=== PATIENT | male | born 1935 | race Two or more races ===

== ENCOUNTER 2018-03-10 09:46 | Inpatient (IN) | payer SELFPAY ==
[~2018-03-10] VITALS: Ht 157.5 cm; Wt 52.2 kg
[~2018-03-10 09:46] MED LIST: IBUPROFEN400 MG ORAL; MULTI-DAY VITA1 EAC1 ORAL; VALIUM2 MG ORAL
[2018-03-10] MEDS ORDERED: NKM (09:56)
[2018-03-10 10:59] LABS: BASOPHILS % (AUTO) 1.2 % (0.0-2.0); EOSINOPHILS % (AUTO) 2.3 % (0.0-3.0); HEMATOCRIT 44.8 % (42.0-52.0); HEMOGLOBIN 14.8 G/DL (14.2-18.0); LYMPHOCYTES % (AUTO) 18.9 % (20.0-45.0); MEAN CORPUSCULAR VOLUME 90 FL (80-99); MONOCYTES % (AUTO) 6.7 % (1.0-10.0); NEUTROPHILS % (AUTO) 70.9 % (45.0-75.0); PLATELET COUNT 296 K/UL (150-450); RED BLOOD COUNT 4.99 M/UL (4.70-6.10); RED CELL DISTRIBUTION WIDTH 11.9 % (11.6-14.8); WHITE BLOOD COUNT 10.3 K/UL (4.8-10.8)
[2018-03-10 11:00] VITALS: BP 145/52
[2018-03-10 11:10] LABS: ANION GAP 8 mmol/L (5-15); BLOOD UREA NITROGEN 18 mg/dL (7-18); CALCIUM 8.7 MG/DL (8.5-10.1); CARBON DIOXIDE 27 MMOL/L (21-32); CHLORIDE 106 MMOL/L (98-107); INR 1.1 (0.9-1.1); POTASSIUM 3.8 MMOL/L (3.5-5.1); SODIUM 141 MMOL/L (136-145)
[2018-03-10 11:24] LABS: ALANINE AMINOTRANSFERASE 24 U/L (12-78); ALBUMIN 3.5 G/DL (3.4-5.0); ALBUMIN/GLOBULIN RATIO 0.9 (1.0-2.7); ALKALINE PHOSPHATASE 96 U/L (46-116); ASPARTATE AMINO TRANSFERASE 20 U/L (15-37); BILIRUBIN,TOTAL 0.9 MG/DL (0.2-1.0)
--- NOTE | 2018-03-10 11:27 | Diagnostic Imaging Report ---
Indication: Chest pain Technique: One view of the chest Comparison: 02/28/2013 Findings: The heart is enlarged, apparently more so than on the prior exam. The lungs and pleural spaces are clear. Impression: Cardiomegaly. No acute process
[2018-03-10 13:00] VITALS: BP 131/51
[2018-03-10] MEDS ORDERED: dilTIAZem HCl 25mg/5ml Inj IV PRN (13:30)
[2018-03-10] MEDS ORDERED: Enalaprilat 2.5mg/2ml Inj IV PRN (13:30)
[2018-03-10] MEDS ORDERED: Albuterol/Ipratropium 3ml neb HHN PRN (13:30)
[2018-03-10] MEDS ORDERED: Ketorolac 30mg Inj IV PRN (13:30)
[2018-03-10] MEDS ORDERED: Miralax 17gm pkt ORAL PRN (13:30)
[2018-03-10] MEDS ORDERED: Nitroglycerin Subl 0.4mg tab SL PRN (13:30)
[2018-03-10] MEDS ORDERED: Morphine Sulfate 2mg/ml Inj IVP PRN (13:30)
--- NOTE | 2018-03-10 13:30 | Emergency Room Report ---
History of Present Illness General Chief Complaint: General Complaint Source: Patient Present Illness HPI This patient c/o right leg pain for several days. It's unclear if he has ever been studied for this. He also c/o pain across anterior chest, minutes duration , mild-moderate, not exertional or rest, occurs randomly. No sob, no diaph, no nausea. No abd pain, no vomiting. The patient does not know med list. Allergies: Coded Allergies: AMOXICILLIN (Verified Allergy, Intermediate, ITCHING/RASH, 03/08/13) Patient History Limited by: language barrier Nursing Documentation-[facility] Past Medical History: No History, Except For Hx Cardiac Problems: No - high cholesterol Hx Hypertension: No Hx Pacemaker: No Hx Asthma: No Hx COPD: No Hx Diabetes: No Hx Cancer: No Hx Gastrointestinal Problems: No Hx Dialysis: No History Of Psychiatric Problem: No Hx Neurological Problems: No Hx Cerebrovascular Accident: No Hx Seizures: No Hx Headaches: Yes - SEVERE HEADACHE STARTED THIS AM Review of Systems Constitutional: Reports: no symptoms Eye: Reports: no symptoms ENT: Reports: no symptoms Respiratory: Reports: no symptoms Cardiovascular: Reports: no symptoms Gastrointestinal: Reports: no symptoms Genitourinary: Reports: no symptoms Musculoskeletal: Reports: see HPI, muscle pain Skin: Reports: no symptoms Psychiatric: Reports: no symptoms Neurological: Reports: no symptoms Endocrine: Reports: no symptoms Hematologic/Lymphatic: Reports: no symptoms Allergic: Reports: no symptoms All Other Systems: negative except mentioned in HPI Physical Exam Vital Signs Date Time Temp Pulse Resp B/P (MAP) Pulse Ox O2 Delivery O2 Flow Rate FiO2 03/10/18 09:52 98.4 55 16 133/60 91 Room Air 98.4 Sp02 EP Interpretation: reviewed, normal General Appearance: normal inspection, well appearing, no apparent distress, alert, GCS 15, non-toxic Head: normocephalic, atraumatic Eyes: bilateral eye normal inspection, bilateral eye PERRL, bilateral eye EOMI ENT: normal ENT inspection, hearing grossly normal, normal pharynx, no angioedema, normal voice, moist mucus membranes Neck: normal inspection, full range of motion, supple, no meningismus, no bony tend Respiratory: normal inspection, lungs clear, normal breath sounds, no rhonchi, no respiratory distress, no retraction, no accessory muscle use, no wheezing Cardiovascular #1: normal inspection, regular rate, rhythm, no edema Gastrointestinal: normal inspection, normal bowel sounds, non tender, soft, no mass, non-distended Musculoskeletal: normal range of motion, other - chronic mottled appearance to right lower leg until a few inches proximal to knee. warm (normal temp) not swollen, normal pulses. Neurologic: normal inspection, alert, oriented x3, responsive, motor strength/ tone normal Psychiatric: normal inspection, judgement/insight normal, memory normal Suicide Risk Assessment: Suicidal Ideation: No Had intent to initiate attempt: No Pt's plan for suicide attempt: No Has means to complete attempt: No Skin: normal inspection, normal color, no rash, warm/dry Medical Decision Making Diagnostic Impression: Primary Impression: Chest pain Additional Impression: Right leg DVT EKG Diagnostic Results Rate: bradycardiac ST Segments: no acute changes Other Impression sinus cele, first degree block. no ischemia (I don't know pt meds) Rhythm Strip Diag. Results Rhythm Strip Time: 13:29 EP Interpretation: yes Rate: cele 46 Chest X-Ray Diagnostic Results Chest X-Ray Diagnostic Results : Chest X-Ray Ordered: Yes # of Views/Limited/Complete: 1 View Indication: Chest Pain EP Interpretation: Yes Interpretation: no consolidation, no effusion, no pneumothorax, no acute cardiopulmonary disease - cardiomegaly Last Vital Signs Date Time Temp Pulse Resp B/P (MAP) Pulse Ox O2 Delivery O2 Flow Rate FiO2 03/10/18 11:00 46 18 145/52 95 Room Air 03/10/18 09:52 98.4 98.4 Disposition: ADMITTED INPATIENT Condition: Serious Referrals: NOT CHOSEN IPA/,REFERRING (PCP) Shola Neumann M.D. Mar 10, 2018 13:30
--- NOTE | 2018-03-10 13:55 | Diagnostic Imaging Report ---
APPROVED REPORT CPT Code: 32765 Present Symptoms Lower Extremity Edema: Right RIGHT LEG: Venous imaging reveals recanalized chronic thrombus in the superficial femoral vein. Large collateral vein noted anterior to the superficial femoral artery. The remainder of the deep venous system is within normal limits. There is no evidence of thrombus in the common femoral, popliteal or calf veins. The greater saphenous vein is also within normal limits. Doppler indicates normal spontaneous flow within these segments. There is no evidence of acute deep vein thrombosis. Incidental findings: An enlarged lymph node noted in the right superficial femoral vein area measures (1.3 cm x .9 cm).
[2018-03-10 16:00] VITALS: BP 127/59
--- NOTE | 2018-03-10 19:59 | History & Physical ---
History and Physical History & Physicial Dictated for Int Med-Dr Arciniega no. [id number]. Ric Sosa MD Mar 10, 2018 19:59
[2018-03-10 20:00] VITALS: BP 109/50
[2018-03-10] MEDS: Heparin 5000 units/ml inj SUBQ SCH (20:36)
--- NOTE | 2018-03-10 22:45 | History and Physical Report ---
DATE OF ADMISSION: 03/10/2018 CHIEF COMPLAINT: This is an 82-year-old male, presents with chief complaint of right leg pain. HISTORY OF PRESENT ILLNESS: The patient has a history of chronic deep venous thrombosis of the right leg. The patient states he began to have leg pain several days ago. It has been increasing over the last couple of days. There is no swelling or erythema to the leg. The patient presented to [place] emergency room. The patient was admitted for right leg pain to rule out acute on chronic deep venous thrombosis. REVIEW OF SYSTEMS: CONSTITUTIONAL: The patient denies weight loss or weight gain. The patient denies fevers or chills. HEENT: The patient denies ear or throat pain. The patient denies headache. CARDIOVASCULAR: The patient denies palpitations or chest pain. CHEST: The patient denies wheeze or shortness of breath. ABDOMEN: The patient denies nausea, vomiting, diarrhea, or constipation. GENITOURINARY: The patient denies dysuria or increased frequency of urination. NEUROMUSCULAR: The patient complains of right leg pain as above. The patient denies seizures or generalized weakness. PAST MEDICAL HISTORY: Significant for: 1. Hypertension. 2. Chronic deep venous thrombosis of the right superficial femoral vein. PAST SURGICAL HISTORY: The patient denies. CURRENT MEDICATIONS: 1. Valium 2 mg p.o. three times daily as needed. 2. Ibuprofen 400 mg p.o. q.4 hours p.r.n. ALLERGIES: To amoxicillin. SOCIAL HISTORY: The patient is single. The patient denies tobacco or alcohol use. PHYSICAL EXAMINATION: VITAL SIGNS: Temperature 98.4, respirations 20, pulse bradycardic at 46, blood pressure 131/51. GENERAL: The patient is well-developed and well-nourished male, in no apparent distress. HEENT: Eyes, pupils are equal and responsive to light and accommodation. Extraocular movements are intact. NECK: Supple. No lymphadenopathy. CHEST: Lungs are clear to auscultation bilaterally without wheezes or rales. CARDIOVASCULAR: Bradycardia. S1 and S2 normal without murmurs, rubs, or gallops. ABDOMEN: Soft, nontender, and nondistended. Positive bowel sounds. No evidence of hepatosplenomegaly. Currently, no rebound or guarding noted. EXTREMITIES: Negative for clubbing, cyanosis, or edema. RECTAL/GENITAL: Refused. NEUROLOGIC: Cranial nerves II to XII are grossly intact without focal deficits. Motor strength is 5/5 bilaterally. Deep tendon reflexes are 2+ plantar. LABORATORY STUDIES: WBC 10.3, hemoglobin 14.8, hematocrit 44.8, platelets 296. Sodium 141, potassium 3.8, chloride 106, CO2 27, BUN 18, creatinine 1.0, glucose 117. Troponin elevated at 0.083. Venous duplex Doppler bilateral lower extremities showed chronic deep venous thrombosis in the superficial femoral vein. ASSESSMENT: This is an 82-year-old male. 1. Elevated troponin. 2. Bradycardia. 3. Right flank pain. 4. Chronic deep venous thrombosis in the right superficial femoral vein. 5. Hypertension. TREATMENT: 1. Elevated troponin/bradycardia. A Cardiology consultation has been obtained with Dr. Jalil Mandel. We will follow recommendations of Cardiology. The patient is admitted to the telemetry unit. 2. Right leg pain/chronic deep venous thrombosis of the right superficial femoral vein. The patient has been started on subcutaneous heparin. 3. Hypertension. Continue Vasotec 2.5 mg IV p.r.n. and diltiazem 10 mg IV p.r.n. Ric Sosa M.D. DR: Roxana JOB#: [id number] CC:
[2018-03-11] VITALS: BP 101/52
[2018-03-11 04:00] VITALS: BP 113/50
[2018-03-11 07:51] LABS: BASOPHILS % (AUTO) 1.2 % (0.0-2.0); EOSINOPHILS % (AUTO) 5.3 % (0.0-3.0); HEMATOCRIT 44.6 % (42.0-52.0); HEMOGLOBIN 15.4 G/DL (14.2-18.0); LYMPHOCYTES % (AUTO) 23.1 % (20.0-45.0); MEAN CORPUSCULAR VOLUME 90 FL (80-99); MONOCYTES % (AUTO) 7.1 % (1.0-10.0); NEUTROPHILS % (AUTO) 63.3 % (45.0-75.0); PLATELET COUNT 282 K/UL (150-450); RED BLOOD COUNT 4.95 M/UL (4.70-6.10); RED CELL DISTRIBUTION WIDTH 11.8 % (11.6-14.8); WHITE BLOOD COUNT 8.5 K/UL (4.8-10.8)
[2018-03-11 08:00] VITALS: BP 127/62
[2018-03-11 08:14] LABS: CHOLESTEROL 146 MG/DL (< 200); HDL CHOLESTEROL 42 MG/DL (40-60); TRIGLYCERIDES 117 MG/DL (30-150)
[2018-03-11 08:23] LABS: INR 1.1 (0.9-1.1)
[2018-03-11] MEDS ORDERED: Aspirin Baby 81mg ORAL SCH (09:00)
[2018-03-11] MEDS: Heparin 5000 units/ml inj SUBQ SCH (09:19)
--- NOTE | 2018-03-11 10:00 | Cardiology Report ---
APPROVED REPORT EXAM: Two-dimensional and M-mode echocardiogram with Doppler and color Doppler. INDICATION LV FUNCTION M-Mode DIMENSIONS IVSd0.9 (0.7-1.1cm)Left Atrium (MM)3.6 (1.6-4.0cm) LVDd5.7 (3.5-5.6cm)Aortic Root3.0 (2.0-3.7cm) PWd1.2 (0.7-1.1cm)Aortic Cusp Exc.1.6 (1.5-2.0cm) IVSs1.7 cm LVDs3.5 (2.5-4.0cm) PWs1.7 cm Normal left ventricular chamber size, systolic function and wall motion . ventricular ejection fraction estimated to be 60-65%. No evidence of left ventricular hypertrophy. No evidence of pericardial effusion. All other cardiac chamber sizes are within normal limits. Focal aortic valve sclerosis with adequate cusp excursion. Thickened mitral valve leaflets with normal excursion. Mitral annulus and aortic root calcification. pulmonic valve structure not well visualized . Normal tricuspid valve structure. IVC at normal size with physiologic collapse. A color flow and spectral Doppler study was performed and revealed: No aortic insufficiency . Trace mitral regurgitation.. Mitral diastolic velocities suggest reduced left ventricular relaxation c/w mild LV diastolic dysfunction (Grade I ). Mild tricuspid regurgitation. Tricuspid systolic velocities suggests peak right ventricular systolic pressure of 28mmHg,
[2018-03-11 12:00] VITALS: BP 124/68
--- NOTE | 2018-03-11 12:11 | Consultation ---
History of Present Illness General Date patient seen: Mar 11, 2018 Time patient seen: 12:04 Chief Complaint: General Complaint Present Illness HPI 82 year old male with HTN and DVT presents with right leg pain, admitted to evaluate for DVT. D dimer elevated. Troponin flat at 0.8, no chest pain. Chest x ray clear. LE ultrasound: There is no evidence of acute deep vein thrombosis. TTE: Normal left ventricular chamber size, systolic function and wall motion ejection fraction estimated to be 60-65%. Allergies: Coded Allergies: AMOXICILLIN (Verified Allergy, Intermediate, ITCHING/RASH, 03/08/13) Medication History Scheduled Multivitamin (Multi-Day Vitamins), 1 TAB ORAL DAILY, (Reported) No Known Medications* (NKM - No Known Medications*), 0 ., (Reported) Scheduled PRN Diazepam* (Valium*), 2 MG ORAL TID PRN for Muscle Spasm Ibuprofen* (Motrin*), 400 MG ORAL Q8H PRN for For Pain Patient History Healthcare decision maker Resuscitation status Full Code Advanced Directive on File No Review of Systems Constitutional: Reports: no symptoms Eye: Reports: no symptoms ENT: Reports: no symptoms Respiratory: Reports: no symptoms Cardiovascular: Reports: no symptoms Gastrointestinal: Reports: no symptoms Genitourinary: Reports: no symptoms Musculoskeletal: Reports: no symptoms Skin: Reports: no symptoms Psychiatric: Reports: no symptoms Neurological: Reports: no symptoms Endocrine: Reports: no symptoms Hematologic/Lymphatic: Reports: blood clots Physical Exam General Appearance: no apparent distress, alert Lines, tubes and drains: peripheral HEENT: normocephalic, atraumatic Neck: non-tender, normal alignment, supple Respiratory/Chest: chest wall non-tender, lungs clear, normal breath sounds Cardiovascular/Chest: normal peripheral pulses, normal rate, regular rhythm Abdomen: normal bowel sounds, non tender Extremities: normal range of motion, non-tender, normal inspection, no calf tenderness, normal capillary refill, non-pitting Skin Exam: normal pigmentation, warm/dry 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, no motor/sensory deficits Last 24 Hour Vital Signs Date Time Temp Pulse Resp B/P (MAP) Pulse Ox O2 Delivery O2 Flow Rate FiO2 03/11/18 09:00 Room Air 03/11/18 08:00 97.2 53 18 127/62 (83) 94 97.2 53 03/11/18 08:00 56 03/11/18 04:00 97.5 45 20 113/50 (71) 98 97.5 45 03/11/18 04:00 41 03/11/18 00:00 49 03/11/18 00:00 98.1 46 20 101/52 (68) 98 98.1 49 03/10/18 21:00 Room Air 03/10/18 20:00 98.1 49 20 109/50 (69) 96 98.1 49 03/10/18 20:00 49 03/10/18 19:20 51 18 Room Air 21 03/10/18 16:00 96.5 47 16 127/59 (81) 96 96.5 46 03/10/18 16:00 47 03/10/18 14:56 Room Air 03/10/18 14:14 98.4 46 20 131/51 97 Room Air 98.4 03/10/18 13:00 46 20 131/51 97 Room Air Intake and Output 03/10/18 03/11/18 19:00 07:00 Intake Total 0 ml Output Total 1000 ml Balance 0 ml -1000 ml Intake Oral 0 ml Output Urine Total 1000 ml # Voids 3 Laboratory Tests Test 03/10/18 15:40 03/11/18 06:50 Troponin I 0.083 ng/mL (0.000-0.056) 0.082 ng/mL (0.000-0.056) White Blood Count 8.5 K/UL (4.8-10.8) Red Blood Count 4.95 M/UL (4.70-6.10) Hemoglobin 15.4 G/DL (14.2-18.0) Hematocrit 44.6 % (42.0-52.0) Mean Corpuscular Volume 90 FL (80-99) Mean Corpuscular Hemoglobin 31.2 PG (27.0-31.0) H Mean Corpuscular Hemoglobin Concent 34.6 G/DL (32.0-36.0) Red Cell Distribution Width 11.8 % (11.6-14.8) Platelet Count 282 K/UL (150-450) Mean Platelet Volume 6.5 FL (6.5-10.1) Neutrophils (%) (Auto) 63.3 % (45.0-75.0) Lymphocytes (%) (Auto) 23.1 % (20.0-45.0) Monocytes (%) (Auto) 7.1 % (1.0-10.0) Eosinophils (%) (Auto) 5.3 % (0.0-3.0) H Basophils (%) (Auto) 1.2 % (0.0-2.0) Prothrombin Time 11.3 SEC (9.30-11.50) Prothromb Time International Ratio 1.1 (0.9-1.1) Activated Partial Thromboplast Time 29 SEC (23-33) C-Reactive Protein, Quantitative 0.6 mg/dL (0.00-0.90) Triglycerides Level 117 MG/DL (30-150) Cholesterol Level 146 MG/DL (< 200) LDL Cholesterol 87 mg/dL (<100) HDL Cholesterol 42 MG/DL (40-60) Cholesterol/HDL Ratio 3.5 (3.3-4.4) Thyroid Stimulating Hormone (TSH) 0.874 uiU/mL (0.358-3.740) Height (Feet): 5 Height (Inches): 2.00 Weight (Pounds): 115 Medications Current Medications Medications (Trade) Dose Ordered Sig/Darinel Route PRN Reason Start Time Stop Time Status Last Admin Dose Admin Acetaminophen (Tylenol) 650 mg Q4H PRN ORAL FEVER 03/10/18 13:30 04/09/18 13:29 03/10/18 23:40 Albuterol/ Ipratropium (Albuterol/ Ipratropium) 3 ml Q4H PRN HHN Shortness of Breath 03/10/18 13:30 03/15/18 13:29 Aspirin (ASA) 162 mg DAILY ORAL 03/11/18 09:00 04/10/18 08:59 03/11/18 09:18 Diltiazem HCl (Cardizem) 10 mg Q1H PRN IV heart rate more than 120, 03/10/18 13:30 04/09/18 13:29 Enalaprilat (Vasotec) 2.5 mg Q6H PRN IV sbp more than 160 03/10/18 13:30 04/09/18 13:29 Heparin Sodium (Porcine) (Heparin 5000 units/ml) 5,000 units EVERY 12 HOURS SUBQ 03/10/18 21:00 04/09/18 20:59 03/11/18 09:19 Ketorolac Tromethamine (Toradol 30mg) 30 mg Q6H PRN IV moderate pain ( 4-6) 03/10/18 13:30 03/15/18 13:29 Morphine Sulfate (Morphine Sulfate) 2 mg Q4H PRN IVP severe Pain (Pain Scale 7-10) 03/10/18 13:30 03/17/18 13:29 Nitroglycerin (Ntg) 0.4 mg Q5M PRN SL Prn Chest Pain 03/10/18 13:30 04/09/18 13:29 Ondansetron HCl (Zofran) 4 mg Q6H PRN IVP Nausea & Vomiting 03/10/18 13:30 04/09/18 13:29 Pantoprazole (Protonix) 40 mg DAILY ORAL 03/11/18 09:00 04/10/18 08:59 03/11/18 09:19 Polyethylene Glycol (Miralax) 17 gm DAILYPRN PRN ORAL Constipation 03/10/18 13:30 04/09/18 13:29 Temazepam (Restoril) 15 mg HSPRN PRN ORAL Insomnia 03/10/18 13:30 03/17/18 13:29 Assessment/Plan Status: stable Assessment/Plan Assessment: 1. Elevated troponin. 2. Bradycardia. 3. Right flank pain. 4. Chronic deep venous thrombosis in the right superficial femoral vein - recanalized 5. Hypertension. Plan: No acute DVT, D dimer false positive No indication to check for PE, no tachycardia/S1Q3T3 or respiratory distress Continue blood pressure control TTE reviewed, normal function, no RV strain or wall motion abnormality Continue aspirin Low dose norvasc 2.5 mg for blood pressure - titrate as needed OK to discharge with follow up next week in clinic Aravind Gregory MD Mar 11, 2018 12:11
--- NOTE | 2018-03-11 13:17 | Consultation ---
History of Present Illness General Date patient seen: Mar 11, 2018 Chief Complaint: General Complaint Present Illness HPI This patient c/o right leg pain for several days. It's unclear if he has ever been studied for this. He also c/o pain across anterior chest, minutes duration , mild-moderate, not exertional or rest, occurs randomly. No sob, no diaph, no nausea. No abd pain, no vomiting. The patient does not know med list. Allergies: Coded Allergies: AMOXICILLIN (Verified Allergy, Intermediate, ITCHING/RASH, 03/08/13) Medication History Scheduled Multivitamin (Multi-Day Vitamins), 1 TAB ORAL DAILY, (Reported) No Known Medications* (NKM - No Known Medications*), 0 ., (Reported) Scheduled PRN Diazepam* (Valium*), 2 MG ORAL TID PRN for Muscle Spasm Ibuprofen* (Motrin*), 400 MG ORAL Q8H PRN for For Pain Patient History Healthcare decision maker Resuscitation status Full Code Advanced Directive on File No Past Medical/Surgical History Past Medical/Surgical History: (1) Tension headache Review of Systems All Other Systems: negative except mentioned in HPI Physical Exam General Appearance: WD/WN Lines, tubes and drains: peripheral Neck: non-tender, normal alignment Respiratory/Chest: lungs clear, normal breath sounds Breasts: no masses Cardiovascular/Chest: normal rate, no JVD Abdomen: non tender Genitourinary/Rectal: normal genital exam Extremities: normal range of motion Last 24 Hour Vital Signs Date Time Temp Pulse Resp B/P (MAP) Pulse Ox O2 Delivery O2 Flow Rate FiO2 03/11/18 12:00 97.3 56 18 124/68 (86) 95 97.3 56 03/11/18 09:00 Room Air 03/11/18 08:00 97.2 53 18 127/62 (83) 94 97.2 53 03/11/18 08:00 56 03/11/18 04:00 97.5 45 20 113/50 (71) 98 97.5 45 03/11/18 04:00 41 03/11/18 00:00 49 03/11/18 00:00 98.1 46 20 101/52 (68) 98 98.1 49 03/10/18 21:00 Room Air 03/10/18 20:00 98.1 49 20 109/50 (69) 96 98.1 49 03/10/18 20:00 49 03/10/18 19:20 51 18 Room Air 21 03/10/18 16:00 96.5 47 16 127/59 (81) 96 96.5 46 03/10/18 16:00 47 03/10/18 14:56 Room Air 03/10/18 14:14 98.4 46 20 131/51 97 Room Air 98.4 Intake and Output 03/10/18 03/11/18 19:00 07:00 Intake Total 0 ml Output Total 1000 ml Balance 0 ml -1000 ml Intake Oral 0 ml Output Urine Total 1000 ml # Voids 3 Laboratory Tests Test 03/10/18 15:40 03/11/18 06:50 Troponin I 0.083 ng/mL (0.000-0.056) 0.082 ng/mL (0.000-0.056) White Blood Count 8.5 K/UL (4.8-10.8) Red Blood Count 4.95 M/UL (4.70-6.10) Hemoglobin 15.4 G/DL (14.2-18.0) Hematocrit 44.6 % (42.0-52.0) Mean Corpuscular Volume 90 FL (80-99) Mean Corpuscular Hemoglobin 31.2 PG (27.0-31.0) H Mean Corpuscular Hemoglobin Concent 34.6 G/DL (32.0-36.0) Red Cell Distribution Width 11.8 % (11.6-14.8) Platelet Count 282 K/UL (150-450) Mean Platelet Volume 6.5 FL (6.5-10.1) Neutrophils (%) (Auto) 63.3 % (45.0-75.0) Lymphocytes (%) (Auto) 23.1 % (20.0-45.0) Monocytes (%) (Auto) 7.1 % (1.0-10.0) Eosinophils (%) (Auto) 5.3 % (0.0-3.0) H Basophils (%) (Auto) 1.2 % (0.0-2.0) Prothrombin Time 11.3 SEC (9.30-11.50) Prothromb Time International Ratio 1.1 (0.9-1.1) Activated Partial Thromboplast Time 29 SEC (23-33) C-Reactive Protein, Quantitative 0.6 mg/dL (0.00-0.90) Triglycerides Level 117 MG/DL (30-150) Cholesterol Level 146 MG/DL (< 200) LDL Cholesterol 87 mg/dL (<100) HDL Cholesterol 42 MG/DL (40-60) Cholesterol/HDL Ratio 3.5 (3.3-4.4) Thyroid Stimulating Hormone (TSH) 0.874 uiU/mL (0.358-3.740) Height (Feet): 5 Height (Inches): 2.00 Weight (Pounds): 115 Medications Current Medications Medications (Trade) Dose Ordered Sig/Darinel Route PRN Reason Start Time Stop Time Status Last Admin Dose Admin Acetaminophen (Tylenol) 650 mg Q4H PRN ORAL FEVER 03/10/18 13:30 04/09/18 13:29 03/10/18 23:40 Albuterol/ Ipratropium (Albuterol/ Ipratropium) 3 ml Q4H PRN HHN Shortness of Breath 03/10/18 13:30 03/15/18 13:29 Aspirin (ASA) 162 mg DAILY ORAL 03/11/18 09:00 04/10/18 08:59 03/11/18 09:18 Diltiazem HCl (Cardizem) 10 mg Q1H PRN IV heart rate more than 120, 03/10/18 13:30 04/09/18 13:29 Enalaprilat (Vasotec) 2.5 mg Q6H PRN IV sbp more than 160 03/10/18 13:30 04/09/18 13:29 Heparin Sodium (Porcine) (Heparin 5000 units/ml) 5,000 units EVERY 12 HOURS SUBQ 03/10/18 21:00 04/09/18 20:59 03/11/18 09:19 Ketorolac Tromethamine (Toradol 30mg) 30 mg Q6H PRN IV moderate pain ( 4-6) 03/10/18 13:30 03/15/18 13:29 Morphine Sulfate (Morphine Sulfate) 2 mg Q4H PRN IVP severe Pain (Pain Scale 7-10) 03/10/18 13:30 03/17/18 13:29 Nitroglycerin (Ntg) 0.4 mg Q5M PRN SL Prn Chest Pain 03/10/18 13:30 04/09/18 13:29 Ondansetron HCl (Zofran) 4 mg Q6H PRN IVP Nausea & Vomiting 03/10/18 13:30 04/09/18 13:29 Pantoprazole (Protonix) 40 mg DAILY ORAL 03/11/18 09:00 04/10/18 08:59 03/11/18 09:19 Polyethylene Glycol (Miralax) 17 gm DAILYPRN PRN ORAL Constipation 03/10/18 13:30 04/09/18 13:29 Temazepam (Restoril) 15 mg HSPRN PRN ORAL Insomnia 03/10/18 13:30 03/17/18 13:29 Assessment/Plan Problem List: (1) Chest pain ICD Codes: R07.9 - Chest pain, unspecified SNOMED: 75384471 (2) Right leg DVT ICD Codes: I82.401 - Acute embolism and thrombosis of unspecified deep veins of right lower extremity SNOMED: 881102300 (3) Tension headache ICD Codes: G44.209 - Tension-type headache, unspecified, not intractable SNOMED: 468306876 Assessment/Plan cardio evaluation symptoamtic treatment Fredy Casarez MD Mar 11, 2018 13:17
--- NOTE | 2018-03-14 14:31 | Discharge Summary ---
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 No swelling, no erythema . Initial evaluation revealed bradycardia with heart rate of 46. EKG revealed sinus bradycardia with first-degree AV block, but no ectopy, no pauses. Laboratory workup revealed no leukocytosis, stable hemoglobin and hematocrit. Troponin 0.083. Elevated D dimer 4.82. Chest x-ray revealed cardiomegaly ,but no acute cardiopulmonary pathology. Venous duplex revealed chronic recanalized thrombosis in the superficial femoral vein right leg. No evidence of acute DVT. Incidental finding of enlarged lymph node in the right superficial femoral vein measuring 1 x 3 x 0.9 cm. Patient admitted with diagnoses elevated troponin, bradycardia, chronic DVT right superficial femoral vein ,hypertension. CONSULTANTS: nut culler dr. Gregory pulmonary Dr. Cas[facility]: Patient admitted to telemetry floor. Cardiology and pulmonology consults were requested. Serial troponin with ing minimally elevation, levels flat . No actual complains of chest pain . EKG revealed sinus bradycardia, but no acute ischemic changes . Troponin elevation was likely secondary to troponin leak. Blood pressure was managed as per nut culler with low dose of calcium channel johny. Antiplatelet therapy with aspirin was continued. Supplemental oxygen and pulmonary toilet provided as needed. Per nut culler, there was no indication to check for pulmonary emboli since clinical presentation did not suggested it. No tachycardia, no respiratory distress. Echocardiogram revealed preserved ejection fraction, no right ventricle strain, no wall motion abnormality. Biometrician cleared patient for discharge and follow-up with nut culler as outpatient next week. DVT and GI prophylaxis provided. Pain management was addressed as needed. Bowel regimen instituted. Patient clinically improved and was stable for discharge home . Due to rapid and unexpected improvement in patient's condition, the patient was discharged in one day. 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 DISCHARGE INSTRUCTIONS: Patient was discharged home . Follow up with nut culler next week. I have been assigned to dictate discharge summary for this account. I was not involved in the patient's management. Ghada Terry NP Mar 14, 2018 14:31
--- NOTE | 2018-03-16 16:22 | Cardiology Report ---
APPROVED REPORT EKG Measurement Heart [id number] CT 250P28 [id number] Sinus bradycardia with 1st degree AV block Otherwise normal ECG
== END 2018-03-11 16:10 | disposition home or self-care (01) | DRG 301 ==
LOC: EMR 10:30 → 2E 11:29 → EDBEDREQ 12:45
DX: I82.511 Chronic embolism and thrombosis of right femoral vein (principal); R00.1 Bradycardia, unspecified; R74.8 Abnormal levels of other serum enzymes; I10 Essential (primary) hypertension; G44.209 Tension-type headache, unspecified, not intractable; Z88.1 Allergy status to other antibiotic agents; R07.9 Chest pain, unspecified; I44.0 Atrioventricular block, first degree
CPT/HCPCS: 36415; 71045; 80053; 80061; 83880; 84443; 84484; 85025; 85379; 85610; 85730; 86140; 93005; 93306; 93971; 94664; 99285